=== PATIENT | male | born 1980 | race Caucasian/White ===

== ENCOUNTER → 2016-04-30 | Outpatient (CLI) | payer BC ==
[~2016-04-30] MED LIST: ALBU1AER9 INH; ASMTWH INH; CETI10TA84 PO; SERT-234 PO; ZONI100C39 PO
[2016-04-30 17:55] LABS: HEMATOCRIT 45.8 % (42-52); MEAN CELL VOLUME 90.9 fL (80-100); MEAN CORPUSCULAR HEMOGLOBIN 31.3 pg (25-34); MEAN CORPUSCULAR HGB CONC 34.5 g/dl (32-36); MEAN PLATELET VOLUME 9.7 fL (7.4-10.4); PLATELET COUNT 304 K/uL (130-400); RED BLOOD COUNT 5.04 M/uL (4.7-6.1); WHITE BLOOD COUNT 9.04 K/uL (4.8-10.8)
[2016-04-30 18:14] LABS: ALT/SGPT 29 U/L (12-78); BLOOD UREA NITROGEN 16 mg/dl (7-18); BUN/CREATININE RATIO 14.4 (10-20); CARBON DIOXIDE 26 mmol/L (21-32); CHLORIDE 107 mmol/L (98-107); GLUCOSE 95 mg/dl (70-99); POTASSIUM 4.2 mmol/L (3.5-5.1); SODIUM 139 mmol/L (136-145)
[2016-04-30 18:17] LABS: ALKALINE PHOSPHATASE 94 U/L (45-117); AST/SGOT 23 U/L (15-37)
== END | disposition home or self-care (01) ==
LOC: C.LAB 17:05
PROVIDERS: ATTEND Nurse Practitioner Acute Care
DX: R56.9 Unspecified convulsions (principal); Z51.81 Encounter for therapeutic drug level monitoring; Z79.899 Other long term (current) drug therapy

== ENCOUNTER 2017-02-24 18:09 | Emergency (ER) | payer BC, OTHER ==
[~2017-02-24] VITALS: Ht 188 cm; Wt 103.5 kg
[2017-02-24 18:15] VITALS: TEMP 36.7; O2SAT 100; Ht 188 cm; Wt 103.5 kg
[2017-02-24] MEDS ORDERED: ACETAMINOPHEN 500 MG TAB PO STA (18:31)
[2017-02-24] MEDS ORDERED: SODIUM CHLORIDE 0.9% 1000ML 1,000 ML IV STA (18:31)
[2017-02-24 18:57] LABS: BASO % 0.4 %; BASO ABS # 0.04 K/uL (0-0.2); EOS % 1.9 %; EOS ABS # 0.18 K/uL (0-0.5); HEMATOCRIT 45.7 % (42-52); HEMOGLOBIN 15.6 g/dL (14.0-18.0); IG# 0.07 K/uL (0.00-0.02); LYMPH % 11.6 %; LYMPH ABS # 1.09 K/uL (1.2-3.4); MEAN CELL VOLUME 90.9 fL (80-100); MEAN CORPUSCULAR HGB CONC 34.1 g/dl (32-36); MEAN PLATELET VOLUME 9.3 fL (7.4-10.4); MONO % 8.7 %; MONO ABS # 0.82 K/uL (0.11-0.59); NEUT % 76.7 %; NEUT ABS # 7.18 K/uL (1.4-6.5); PLATELET COUNT 284 K/uL (130-400); RED CELL DISTRIBUTION WIDTH CV 14.5 % (11.5-14.5); RED CELL DISTRIBUTION WIDTH SD 48.3 fL (36.4-46.3); WHITE BLOOD COUNT 9.38 K/uL (4.8-10.8)
[2017-02-24 19:14] LABS: CALCIUM 8.9 mg/dl (8.5-10.1); CREATININE 1.24 mg/dl (0.60-1.40); POTASSIUM 3.5 mmol/L (3.5-5.1)
--- NOTE | 2017-02-24 19:35 | EMERGENCY ROOM VISIT NOTE ---
History Report prepared by Wes: Shane Izaguirre Under the Supervision of: Dr. Rick Stokes D.O. First contact with patient: 18:15 Chief Complaint: SEIZURE Stated Complaint: SEIZURE Nursing Triage Summary: See triage note History of Present Illness The patient is a 36 year old male who presents to the Emergency Room with complaints of a resolved, 5 minute seizure that occurred around an hour ago. The patient states his seizure started right after a 50 minute workout class at the gym. The nurse reports the patient was caught by bystanders. He notes he now has a terrible headache, and this is typical after he has a Grand Mal seizure. The patient states he has not had a Grand Mal seizure in a few years. He reports he takes medication daily for epilepsy, and he follows up with a neurologist in [place]. The patient notes he just got his license back a few months ago, and he has been trying to get a car. He states he lives by himself because he is . The patient reports he has two children that he shares custody with. He denies chest pain, shortness of breath, nausea, vomiting, and diarrhea. Source of History: patient, nursing staff Onset: 1 hour ago Position: other (global) Symptom Intensity: 5 minutes Quality: other (seizure) Timing: resolved Associated Symptoms: + headache, No chest pain, No SOB, No nausea, No vomiting, No diarrhea Review of Systems See HPI for pertinent positives & negatives. A total of 10 systems reviewed and were otherwise negative. Past Medical & Surgical Medical Problems: (1) Asthma, Unspecified (2) Seizure disorder Family History Kidney stones Psychiatric condition Social History Smoking Status: Former Smoker Drug Use: none Marital Status: Housing Status: lives with family Occupation Status: employed Current/Historical Medications Scheduled Albuterol (Proair Hfa), 2 PUFFS INH QID PRN Mometasone Furoate (Asmanex Twisthaler *), 1 PUFF INH DAILY Sertraline (Zoloft), 200 MG PO QAM Zonisamide (Zonegran), 100 MG PO TID Scheduled PRN Cetirizine (Zyrtec), 10 MG PO DAILY PRN Allergies Coded Allergies: Lamotrigine (Verified Allergy, Intermediate, hives, 03/03/15) Levetiracetam (Verified Allergy, Intermediate, hives, 03/03/15) Uncoded Allergies: TREE NUTS (Allergy, Severe, THROAT SWELLS SHUT, 03/03/15) Physical Exam Vital Signs Date Time Temp Pulse Resp B/P (MAP) Pulse Ox O2 Delivery O2 Flow Rate FiO2 02/24/17 19:19 69 02/24/17 18:15 36.7 84 16 129/61 100 Room Air 02/24/17 18:15 100 Room Air Physical Exam CONSTITUTIONAL/VITAL SIGNS: Reviewed / noted above. GENERAL: Non-toxic in appearance. INTEGUMENTARY: Warm, dry, and [place]. HEAD: Normocephalic. EYES: without scleral icterus or trauma. ENT/OROPHARYNX: moist. Contusion to the left lateral tongue. LYMPHADENOPATHY/NECK: Is supple without lymphadenopathy or meningismus. RESPIRATORY: Lungs clear and equal. CARDIOVASCULAR: Regular rate and rhythm. GI/ABDOMEN: Soft and nontender. No organomegaly or pulsatile mass. No rebound or guarding. Normal bowel sounds. EXTREMITIES: Warm and well perfused. BACK: No CVA tenderness. NEUROLOGICAL: Intact without focal deficits. PSYCHIATRIC: normal affect. MUSCULOSKELETAL: Normally developed with good muscle tone. Medical Decision & Procedures Laboratory Results 02/24/17 18:46 Red Blood Count 5.03, Mean Corpuscular Volume 90.9, Mean Corpuscular Hemoglobin 31.0, Mean Corpuscular Hemoglobin Concent 34.1, Mean Platelet Volume 9.3, Neutrophils (%) (Auto) 76.7, Lymphocytes (%) (Auto) 11.6, Monocytes (%) (Auto) 8.7, Eosinophils (%) (Auto) 1.9, Basophils (%) (Auto) 0.4, Neutrophils # (Auto) 7.18, Lymphocytes # (Auto) 1.09, Monocytes # (Auto) 0.82, Eosinophils # (Auto) 0.18, Basophils # (Auto) 0.04 02/24/17 18:46 Test 02/24/17 18:46 White Blood Count 9.38 K/uL (4.8-10.8) Red Blood Count 5.03 M/uL (4.7-6.1) Hemoglobin 15.6 g/dL (14.0-18.0) Hematocrit 45.7 % (42-52) Mean Corpuscular Volume 90.9 fL (80-100) Mean Corpuscular Hemoglobin 31.0 pg (25-34) Mean Corpuscular Hemoglobin Concent 34.1 g/dl (32-36) Platelet Count 284 K/uL (130-400) Mean Platelet Volume 9.3 fL (7.4-10.4) Neutrophils (%) (Auto) 76.7 % Lymphocytes (%) (Auto) 11.6 % Monocytes (%) (Auto) 8.7 % Eosinophils (%) (Auto) 1.9 % Basophils (%) (Auto) 0.4 % Neutrophils # (Auto) 7.18 K/uL (1.4-6.5) Lymphocytes # (Auto) 1.09 K/uL (1.2-3.4) Monocytes # (Auto) 0.82 K/uL (0.11-0.59) Eosinophils # (Auto) 0.18 K/uL (0-0.5) Basophils # (Auto) 0.04 K/uL (0-0.2) RDW Standard Deviation 48.3 fL (36.4-46.3) RDW Coefficient of Variation 14.5 % (11.5-14.5) Immature Granulocyte % (Auto) 0.7 % Immature Granulocyte # (Auto) 0.07 K/uL (0.00-0.02) Anion Gap 8.0 mmol/L (3-11) Est Creatinine Clear Calc Drug Dose 103.7 ml/min Estimated GFR () 84.9 Estimated GFR (Non- 73.3 BUN/Creatinine Ratio 14.2 (10-20) Calcium Level 8.9 mg/dl (8.5-10.1) Magnesium Level 2.5 mg/dl (1.8-2.4) Total Creatine Kinase 158 U/L (39-308) Laboratory results as stated above per my review. Medications Administered Medications (Trade) Dose Ordered Sig/Alexander Route Start Time Stop Time Status Last Admin Dose Admin Acetaminophen (Tylenol Tab) 1,000 mg NOW STAT PO 02/24/17 18:31 18 18:33 DC 02/24/17 18:48 1,000 MG Sodium Chloride 1,000 ml @ 999 mls/hr Q1H1M STAT IV 02/24/17 18:31 18 19:31 DC 02/24/17 18:47 999 MLS/HR ECG Indication: other (seizure) Rate (beats per minute): 80 Rhythm: normal sinus Findings: no acute ischemic change, no ectopy ED Course 1824: Previous medical records were reviewed. The patient was evaluated in room C03. A complete history and physical examination was performed. 1830: Ordered Sodium Chloride 1000 ml @ 999 mls/hr IV, Acetaminophen 1000 mg PO 1936: On reevaluation, the patient is resting comfortably and feeling better. I discussed the results and findings with the patient. He verbalized agreement of the treatment plan. The patient was discharged home. Medical Decision Differential diagnosis: Etiologies such as infection, hypoglycemia, electrolyte abnormalities, cardiac sources, intracerebral event, trauma, toxicologic, neurologic, as well as others were entertained. This is a 36-year-old male who presents to the ED with a chief complaint of a seizure. The patient states that he has a history of seizures. He is currently on Zonegran for his seizures. He has not had a seizure for some time. He states that he just got his license back 3 months ago. The patient had a witnessed seizure that lasted for about 5 minutes. EMS was not able to provide the details as to whether or not it was tonic-clonic or not. The patient did bite the left side of his tongue. He did not suffer any trauma as he was caught when he collapsed. He denies any recent illness. He had just worked out at the gym for about 50 minutes prior to the occurrence. He complains of a headache which is typical for him after a seizure. His EKG shows a normal sinus rhythm. The patient's blood work reveals an unremarkable CBC and chemistry panel. The patient was given IV fluids and by mouth Tylenol for headache. He was told the results. He is felt to be stable for discharge. [employer] form filed. Impression Primary Impression: Breakthrough seizure Scribe Attestation The scribe's documentation has been prepared under my direction and personally reviewed by me in its entirety. I confirm that the note above accurately reflects all work, treatment, procedures, and medical decision making performed by me. Departure Information Dispostion Home / Self-Care Referrals Khris Burch M.D. (PCP) Forms HOME CARE DOCUMENTATION FORM, IMPORTANT VISIT INFORMATION Patient Instructions My [facility] Additional Instructions Do not drive until cleared by neurology. Talk to your neurologist about what occurred today. Continue your current medications. Get adequate rest and hydration.
[2017-02-24] MEDS ORDERED: KETOROLAC TROMETHAMINE 30 MG/ML VIAL IV STA (19:38)
[2017-02-24 20:36] VITALS: BP 129/61; PULSE 65; O2SAT 100
== END 2017-02-24 20:38 | disposition home or self-care (01) ==
LOC: EDBD 18:09 → C.EDC 18:10
DX: G40.909 Epilepsy, unspecified, not intractable, without status epilepticus (principal); J45.909 Unspecified asthma, uncomplicated; Z87.891 Personal history of nicotine dependence; Z84.1 Family history of disorders of kidney and ureter; Z79.899 Other long term (current) drug therapy